=== PATIENT | male | born 1945 | race Caucasian/White ===

== ENCOUNTER → 2016-11-08 | Outpatient (CLI) | payer OTHER | END | disposition home or self-care (01) | LOC: GMAM 12:13 | PROVIDERS: ATTEND Family Medicine | DX: Z12.5 Encounter for screening for malignant neoplasm of prostate (principal) ==

== ENCOUNTER → 2017-10-08 | Outpatient (CLI) | payer OTHER | LOC: GMAM 16:54 | PROVIDERS: ATTEND Family Medicine | DX: E87.6 Hypokalemia (principal) ==

== ENCOUNTER → 2018-04-08 | Outpatient (CLI) | payer OTHER ==
--- NOTE | 2018-04-08 14:19 | MRI ---
EXAM DESCRIPTION: Shoulder,Right CLINICAL HISTORY: 72 years Male, SHOULDER PAIN COMPARISON: None. TECHNIQUE: Routine noncontrast multiplanar multisequence arthritis imaging of the right shoulder was performed. 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 Small subacromial/subdeltoid bursal fluid collection is present. There is type II acromial morphology. Mild thickening and heterogeneity is present within the subscapularis tendon. No high-grade subscapularis tendon tears demonstrated. Supraspinatus exhibits normal thickness and signal intensity. Mild intrinsic signal is noted within the infraspinatus tendon indicating tendinosis. No high-grade partial-thickness or full-thickness rotator cuff tear. Degenerative tearing is seen throughout the superior labrum. Tear within the anterior inferior labrum extends from the 3:00 position to the 6:00 position. Anterior inferior labral redundancy/hypertrophy. Long head biceps tendon is situated within the intertubercular groove. There is no Hill-Sachs deformity. Usual cystic changes noted within the bare area of the posterior humeral head. Glenohumeral joint articular surface is maintained. IMPRESSION: Infraspinatus and subscapularis tendinosis. No high-grade partial-thickness or full-thickness rotator cuff tear. 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 Small subacromial bursitis. Superior and anterior inferior labral tearing. See above description. No advanced glenohumeral joint osteoarthritis. Electronically signed by: Yfn Quinteros MD 04/08/2018 2:18 PM CDT
== END ==
LOC: RAD 04-07 09:24
PROVIDERS: ATTEND Family Medicine
DX: M19.011 Primary osteoarthritis, right shoulder (principal); M75.51 Bursitis of right shoulder

== ENCOUNTER → 2019-03-24 | Outpatient (CLI) | payer OTHER | LOC: GMAM 15:12 | PROVIDERS: ATTEND Family Medicine | DX: R51 Headache (principal); Z12.5 Encounter for screening for malignant neoplasm of prostate ==

== ENCOUNTER 2019-08-12 12:47 | Emergency (ER) | payer MEDICARE, OTHER ==
[2019-08-12] MEDS ORDERED: LIDOCAINE HCL 2% (MOUTH-THROAT) 15 ML UD MT ONE ×2 (13:22→14:37)
[2019-08-12] MEDS ORDERED: LIDOCAINE HCL 2% (MOUTH-THROAT) 15 ML UD ONE (13:23)
--- NOTE | 2019-08-12 14:05 | RAD ---
EXAM DESCRIPTION: Chest,2 Views CLINICAL HISTORY: 74 years Male, food bolus impaction COMPARISON: Radiographs the chest dated 03/24/2019. TECHNIQUE: PA and lateral radiographs of the chest were obtained. FINDINGS: Changes of CABG. Trachea is midline.The cardiomediastinal silhouette is normal in size. The pulmonary vasculature is within normal limits.The lungs are clear with no acute consolidation.No evidence of pleural effusions.No evidence of pneumothorax. IMPRESSION: No acute cardiopulmonary process. Electronically signed by: Nuria Muhammad MD 08/12/2019 2:03 PM OFFICE MANAGER RECEPTIONIST
--- NOTE | 2019-08-12 14:24 | ED.PDOC ---
History of Present Illness - General Chief Complaint: GI Problem Time Seen by Provider: 08/12/19 13:13 Source: patient Exam Limitations: no limitations - History of Present Illness Initial Comments: the patient is a 74-year-old male presenting to the emergency room with what appears to be an impacted food bolus probably right at the gastroesophageal junction. He has had periodic hang ups before. He reports that he took about a meeting yesterday around 7 PM and has had copious clear secretions coming back up since. No vomiting of any other material. No shortness of breath. Vital signs are stable. The patient defers an IV for IV fluid supplementation since he has not taken any over the last 18 hours.no fever. No chest pain. Timing/Duration: other - 18 hours Severity: moderate Improving Factors: nothing Worsening Factors: nothing Associated Symptoms: denies symptoms Allergies/Adverse Reactions: Allergies NO KNOWN ALLERGY Allergy (Verified 08/12/19 13:21) Home Medications: Ambulatory Orders Albuterol Inhaler [Ventolin Hfa Inhaler] 1 puff INH QID 12/05/15 Aspirin [Gray Low Dose] 81 mg PO DAILY 12/05/15 Lisinopril [Zestril] 10 mg PO BID 12/05/15 Metoprolol Tartrate 25 mg PO DAILY 12/05/15 Multiple Vitamins W/ Minerals [Centrum Adults] 1 tab PO DAILY 12/05/15 amLODIPine BESYLATE [Norvasc] 10 mg PO DAILY 12/05/15 Review of Systems - Review of Systems Constitutional: States: no symptoms reported EENTM: States: no symptoms reported Respiratory: States: no symptoms reported Cardiology: States: no symptoms reported Gastrointestinal/Abdominal: States: see HPI Genitourinary: States: no symptoms reported Musculoskeletal: States: no symptoms reported Skin: States: no symptoms reported Neurological: States: no symptoms reported Endocrine: States: no symptoms reported All other Systems: No Change from Baseline Past Medical History (General) - Patient Medical History Hx Congestive Heart Failure: No Hx Diabetes: No Physical Exam - Physical Exam General Appearance: Alert, Comfortable, No apparent distress Eye Exam: bilateral normal Ears, Nose, Throat: hearing grossly normal, normal ENT inspection Neck: full range of motion, supple Respiratory: lungs clear, normal breath sounds, no respiratory distress, no accessory muscle use Cardiovascular/Chest: normal peripheral pulses, no edema, other - regular rate Peripheral Pulses: radial,right: 2+, radial,left: 2+ Gastrointestinal/Abdominal: non tender, soft Rectal Exam: deferred Extremity: normal range of motion, no pedal edema, normal capillary refill Neurologic: 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 Conservative measures here have failed to move the bolus. The patient is likely going to need it removed with endoscopy. 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 The patient has deferred transfer here by me to any specific facility. He has been warned about the time sensitive nature of this. Obviously he is not able to take oral intake so he can get dehydrated as well fairly quickly and he has been warned about the possibility of infection or perforation with leaving it in place. He reports that he will get his brother to take him to the [facility] to one of the hospitals there. Again he has deferred me arranging that transfer at this time. Vital signs are stable. ER warnings were given. He does need to seek a higher level of care for intervention as soon as possible. [email or web address] [id number] Departure - Departure Clinical Impression: Esophageal obstruction due to food impaction Disposition: Discharge to Home or Self Care Condition: Fair Departure Forms: ED Discharge - Pt. Copy, Patient Portal Self Enrollment Instructions: Food Obstruction Diet: other - nothing by mouth Activity: increase activity as tolerated Referrals: Zoran Wood MD [Primary Care Provider] - 1-2 Weeks Home Medications: Ambulatory Orders Albuterol Inhaler [Ventolin Hfa Inhaler] 1 puff INH QID 12/05/15 Aspirin [Gray Low Dose] 81 mg PO DAILY 12/05/15 Lisinopril [Zestril] 10 mg PO BID 12/05/15 Metoprolol Tartrate 25 mg PO DAILY 12/05/15 Multiple Vitamins W/ Minerals [Centrum Adults] 1 tab PO DAILY 12/05/15 amLODIPine BESYLATE [Norvasc] 10 mg PO DAILY 12/05/15 Additional Instructions: the patient is a 74-year-old male presenting with what appears to be a food bolus impaction of the gastroesophageal junction. Conservative measures here have failed to move the bolus. The patient is likely going to need it removed with endoscopy. 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 The patient has deferred transfer here by me to any specific facility. He has been warned about the time sensitive nature of this. Obviously he is not able to take oral intake so he can get dehydrated as well fairly quickly and he has been warned about the possibility of infection or perforation with leaving it in place. He reports that he will get his brother to take him to the [facility] to one of the hospitals there. Again he has deferred me arranging that transfer at this time. Vital signs are stable. ER warnings were given. He does need to seek a higher level of care for intervention as soon as possible, today.
[2019-08-12 14:49] VITALS: O2SAT 97
[2019-08-12 14:53] VITALS: BP 164/101; TEMP 98.3
== END 2019-08-12 14:45 | disposition home or self-care (01) ==
LOC: ER 12:47
DX: T18.128A Food in esophagus causing other injury, initial encounter (principal); Z79.82 Long term (current) use of aspirin; Z79.899 Other long term (current) drug therapy